=== PATIENT | male | born 1975 | race African-American/Black ===

== ENCOUNTER 2021-07-02 16:26 | Inpatient (IN) | payer BC, OTHER ==
[~2021-07-02] VITALS: Ht 172.7 cm; Wt 94.0 kg
[2021-07-02] MEDS ORDERED: HYDROmorphone HCL 2 MG/ML VL/or syr IV ONE ×2 (18:15→22:15)
[2021-07-02] MEDS ORDERED: SODIUM CHLORIDE 0.9% 1,000 ML IV ONE (18:15)
[2021-07-02] MEDS ORDERED: ONDANSETRON HCL 4 MG/2 ML VIAL IV ONE ×2 (18:15→22:30)
[2021-07-02 18:33] LABS: Basophils # (auto) 0 10 ^3/uL (0-0.2); Basophils % (auto) 0.4 % (0.0-2.0); Eosinophils # (auto) 0 10 ^3/uL (0-0.8); Eosinophils % (auto) 0.2 % (0.0-7.0); Hematocrit 43.3 % (41.0-53.0); Hemoglobin 15.1 g/dL (13.5-17.5); Lymphocytes # (auto) 2.1 10 ^3/uL (0.4-5.4); Lymphocytes % (auto) 22.6 % (10.0-50.0); Mean Corpuscular Hemoglobin 29.4 pg (28.0-32.0); Mean Corpuscular Hgb Conc. 34.8 g/dL (32.0-36.0); Mean Corpuscular Volume 84.3 fL (80.0-100.0); Monocytes # (auto) 0.9 10 ^3/uL (0-1.3); Monocytes % (auto) 9.1 % (0.0-12.0); Neutrophils # (auto) 6.4 10 ^3/uL (1.6-8.6); Neutrophils % (auto) 67.7 % (37.0-80.0); Nucleated Red Blood Cells % 0.1 %; Red Blood Cells 5.13 10^6/uL (4.5-5.90); White Blood Cell 9.5 10^3/uL (4.4-10.8)
[2021-07-02 18:55] LABS: Potassium 3.7 mmol/L (3.5-5.1)
[2021-07-02 19:02] LABS: Albumin 3.9 g/dL (3.4-5.0); BUN/Creatinine Ratio 12.4; Bilirubin, Total 0.6 mg/dL (0.2-1.0); Calcium 9.2 mg/dL (8.5-10.1); Total Protein 7.8 g/dL (6.4-8.2)
[2021-07-02] MEDS ORDERED: DOCUSATE SOD 100 MG CAP PO PRN (23:30)
[2021-07-02] MEDS ORDERED: ACETAMINOPHEN 325 MG TAB PO PRN (23:30)
[2021-07-02 23:57] LABS: Urine Bacteria NONE SEEN /hpf (None Seen); Urine Blood Negative /uL (Negative); Urine Mucus FEW (None Seen); Urine Specific Gravity 1.025 (1.001-1.035); Urine WBC 3 /hpf (0 - 3)
[2021-07-03 00:11] LABS: Barbiturate Scree,Urine NEGATIVE (NEGATIVE); Benzodiazephine Screen, Urine NEGATIVE (NEGATIVE); Cannabinoid Screen, Urine POSITIVE (NEGATIVE); Cocaine Screen, Urine NEGATIVE (NEGATIVE); Opiate Scree,Urine NEGATIVE (NEGATIVE); Phencyclidine Screen, Urine NEGATIVE (NEGATIVE)
[2021-07-03 00:19] LABS: Amphetamine Screen, Urine NEGATIVE (NEGATIVE)
[2021-07-03] MEDS: ONDANSETRON HCL 4 MG/2 ML VIAL IV PRN ×3 (03:53→22:09)
[2021-07-03] MEDS: HYDROmorphone HCL 2 MG/ML VL/or syr IV PRN ×4 (03:57→22:09)
[2021-07-03] MEDS: SODIUM CHLOR 0.9% PF (SALINE LOCK) 10ML VIAL/SYR IV SCH ×3 (07:07→22:11)
[2021-07-03 09:00] VITALS: BP 123/43
[2021-07-03] MEDS ORDERED: LORazepam 2MG/ML-1ML VIAL IV ONE (10:15)
[2021-07-03] MEDS ORDERED: SODIUM CHLORIDE 0.9% 1,000 ML IV ONE (11:45)
[2021-07-03] MEDS: HYDROcodone-ACET 5/325MG TAB PO PRN ×2 (15:48→20:04)
[2021-07-03 16:00] VITALS: BP 136/78
[2021-07-03] MEDS: SODIUM CHLORIDE 0.9% 1,000 ML IV SCH ×2 (18:51→20:40)
[2021-07-03 22:00] VITALS: BP 160/82
[2021-07-04] MEDS: SODIUM CHLORIDE 0.9% 1,000 ML IV SCH ×4 (03:20→23:25)
[2021-07-04] MEDS: ONDANSETRON HCL 4 MG/2 ML VIAL IV PRN ×3 (04:38→21:03)
[2021-07-04] MEDS: HYDROmorphone HCL 2 MG/ML VL/or syr IV PRN ×4 (04:38→21:02)
[2021-07-04 05:00] VITALS: BP 133/76
[2021-07-04] MEDS: SODIUM CHLOR 0.9% PF (SALINE LOCK) 10ML VIAL/SYR IV SCH ×3 (06:20→21:01)
[2021-07-04] MEDS: HYDROcodone-ACET 5/325MG TAB PO PRN ×3 (08:09→23:59)
[2021-07-04 09:00] VITALS: BP 135/87
[2021-07-04 13:00] VITALS: BP 123/77
[2021-07-04 17:00] VITALS: BP 132/73
[2021-07-04 22:00] VITALS: BP 127/74
[2021-07-05] MEDS: HYDROmorphone HCL 2 MG/ML VL/or syr IV PRN ×3 (04:58→20:23)
[2021-07-05] MEDS: ONDANSETRON HCL 4 MG/2 ML VIAL IV PRN ×3 (04:59→20:24)
[2021-07-05 05:00] VITALS: BP 118/39
[2021-07-05] MEDS: SODIUM CHLORIDE 0.9% 1,000 ML IV SCH ×3 (05:48→13:40)
[2021-07-05] MEDS: SODIUM CHLOR 0.9% PF (SALINE LOCK) 10ML VIAL/SYR IV SCH ×3 (05:48→22:00)
[2021-07-05 07:55] VITALS: BP 116/67
[2021-07-05 12:10] VITALS: BP 112/68
[2021-07-05 16:05] VITALS: BP 129/72
[2021-07-05 22:00] VITALS: BP 138/82
[2021-07-06] MEDS: SODIUM CHLORIDE 0.9% 1,000 ML IV SCH ×2 (02:00→08:40)
[2021-07-06 05:00] VITALS: BP 128/67
[2021-07-06] MEDS: SODIUM CHLOR 0.9% PF (SALINE LOCK) 10ML VIAL/SYR IV SCH ×2 (05:35→13:54)
[2021-07-06] MEDS: HYDROcodone-ACET 5/325MG TAB PO PRN (06:43)
[2021-07-06 08:10] VITALS: BP 149/95
[2021-07-06 09:00] VITALS: BP 149/95
[2021-07-06 11:33] LABS: INR 1.05 (0.9-1.15); Partial Thromboplastin Time 26.2 sec (23.6-33.0)
[2021-07-06] MEDS ORDERED: fentaNYL CITRATE 100 MCG/2 ML VL ONE (11:52)
[2021-07-06] MEDS ORDERED: MIDAZOLAM HCL 2MG/2ML 2ml VIAL (1mg/ml) ONE (11:52)
[2021-07-06 13:55] VITALS: BP 110/68
== END 2021-07-06 14:49 | disposition home or self-care (01) | DRG 103 ==
LOC: ER 16:26 → OVERFLOW 23:28 → WEST WING 07-03 02:55
PROVIDERS: ADMIT Internal Medicine; ATTEND Family Medicine
DX: G97.1 Other reaction to spinal and lumbar puncture (principal); G89.29 Other chronic pain; F17.210 Nicotine dependence, cigarettes, uncomplicated; G96.810 Intracranial hypotension, unspecified; Z20.822 Contact with and (suspected) exposure to COVID-19; Y84.4 Aspiration of fluid as the cause of abnormal reaction of the patient, or of later complication, without mention of misadventure at the time of the procedure; Z83.3 Family history of diabetes mellitus; Z91.19 Patient's noncompliance with other medical treatment and regimen
CPT/HCPCS: 36415; 70450; 70551; 71045; 72148; 80053; 80307; 81001; 85025; 85610; 85730; 86850; 86900; 86901; 96361; 96374; 96375; 96376; G0378; J2250; J2405